=== PATIENT | male | born 1950 | race Caucasian/White ===

== ENCOUNTER 2018-06-09 11:16 | Outpatient (CLI) | payer MEDICARE, BC ==
--- NOTE | 2018-06-09 12:47 | RAD ---
PA AND LATEARL CHEST: INDICATIONS: History of dyspnea. COMPARISON: Prior exam dated August 2015. FINDINGS: There are persistent interstitial opacities within the left lower lobe, stable to the comparison in 2 015 and may reflect a focus of scarring. There are areas of bronchiectasis involving the left lung b ase, seen on a high resolution CT evaluation dated 11/24/2013. The right lung is clear. 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 Heart size and pulmonary vasculature are within normal l imits. IMPRESSION: 1. No acute cardiopulmonary abnormality. 2. Bronchiectasis and scarring in the left lower lobe, stable to the comparison examination from 201 5. POS: [facility]
== END 2018-06-09 11:17 | disposition home or self-care (01) ==
LOC: RAD 11:16
PROVIDERS: ATTEND Internal Medicine Pulmonary Disease
DX: R06.00 Dyspnea, unspecified (principal); J47.9 Bronchiectasis, uncomplicated; J98.4 Other disorders of lung
CPT/HCPCS: 71046

== ENCOUNTER 2019-06-08 10:24 | Outpatient (CLI) | payer MEDICARE, BC ==
--- NOTE | 2019-06-08 10:55 | RAD ---
CHEST 2 VIEWS: Date: 06/08/19 COMPARISON: 06/09/18. CLINICAL INDICATION: Dyspnea. FINDINGS: Mild patchy left basilar density is similar appearing. Mild interstitial prominence of each lung is s een. The cardiomediastinal silhouette is stable. IMPRESSION: Stable patchy opacity left lower lung zone. There is associated bronchiectasis. This may be related t o a chronic component of interstitial lung disease. Superimposed acute pneumonitis is not excluded. POS: [facility]
== END 2019-06-08 10:25 | disposition home or self-care (01) ==
LOC: RAD 10:24
PROVIDERS: ATTEND Internal Medicine Pulmonary Disease
DX: R06.00 Dyspnea, unspecified (principal); R91.8 Other nonspecific abnormal finding of lung field; J47.9 Bronchiectasis, uncomplicated
CPT/HCPCS: 71046

== ENCOUNTER 2023-09-17 10:35 | Outpatient (CLI) | payer MEDICARE, BC | END 2023-09-17 10:36 | disposition home or self-care (01) | LOC: RAD 10:35 | PROVIDERS: ATTEND Internal Medicine Critical Care Medicine | DX: R06.00 Dyspnea, unspecified (principal); J18.9 Pneumonia, unspecified organism | CPT/HCPCS: 71046 ==

== ENCOUNTER 2024-09-29 12:35 | Outpatient (CLI) | payer MEDICARE, BC | END 2024-09-29 12:36 | disposition home or self-care (01) | LOC: RAD 12:35 | PROVIDERS: ATTEND Internal Medicine Critical Care Medicine | DX: R06.00 Dyspnea, unspecified (principal) | CPT/HCPCS: 71046 ==

== ENCOUNTER 2025-09-26 13:07 | Outpatient (CLI) | payer MEDICARE, BC | END 2025-09-26 13:08 | disposition home or self-care (01) | LOC: RAD 13:07 | PROVIDERS: ATTEND Internal Medicine Critical Care Medicine | DX: R06.00 Dyspnea, unspecified (principal) | CPT/HCPCS: 71046 ==